=== PATIENT | female | born 1990 | race Caucasian/White ===

== ENCOUNTER 2016-12-02 18:52 | Inpatient (IN) | payer BC ==
[2016-12-02 20:44] LABS: Hematocrit 36 % (35-47); Hemoglobin 11.8 g/dl (12.0-16.0); Mean Corpuscular HGB Conc 33 g/dl (31-36); Mean Corpuscular Hemoglobin 26 pg (27-31); Mean Corpuscular Volume 79 fL (80-97); Mean Platelet Volume 11 um3 (7.4-10.4); Red Blood Count 4.56 10^6/ul (4.0-5.4); Red Cell Distribution Width 16 % (10.5-15); White Blood Count 14.2 10^3/ul (3.5-10.8)
[2016-12-02 20:58] LABS: BUN/Creatinine Ratio 16.7 (8-20); Calcium 8.6 mg/dL (8.6-10.3); EGFR African American 156.7 (>60); EGFR Non-African American 121.8 (>60); Uric Acid 4.5 mg/dL (2.3-6.6)
[2016-12-02] MEDS ORDERED: fentaNYL* 50 MCG/ML 2 ML VIAL (100 MCG VIAL) IV SLOW PU ONE (22:39)
[2016-12-03] MEDS ORDERED: oxyCODONE/Acetamin 5/325 MG* TAB PO PRN (01:11)
[2016-12-03] MEDS ORDERED: Acetaminophen TAB* 325 MG PO PRN (01:11)
[2016-12-03] MEDS ORDERED: Witch Hazel PAD* JAR TOPICAL PRN (01:11)
[2016-12-03] MEDS ORDERED: Dibucaine 1% 28.35 GM TUBE PR PRN (01:11)
[2016-12-03] MEDS: Ibuprofen TAB* 600 MG PO PRN ×4 (03:47→23:55)
[2016-12-03] MEDS: Docusate CAP* 100 MG PO SCH ×3 (09:57→20:56)
[2016-12-04 07:51] VITALS: BP 123/75
[2016-12-04 08:55] LABS: Hematocrit 34 % (35-47); Hemoglobin 11.1 g/dl (12.0-16.0); Mean Corpuscular HGB Conc 32 g/dl (31-36); Mean Corpuscular Hemoglobin 26 pg (27-31); Mean Corpuscular Volume 81 fL (80-97); Mean Platelet Volume 10 um3 (7.4-10.4); Red Blood Count 4.22 10^6/ul (4.0-5.4); Red Cell Distribution Width 16 % (10.5-15); White Blood Count 11.2 10^3/ul (3.5-10.8)
[2016-12-04] MEDS ORDERED: Ferrous Gluconate TAB* 324 MG TAB PO SCH (09:00)
[2016-12-04] MEDS: Docusate CAP* 100 MG PO SCH (09:29)
== END 2016-12-04 10:50 | disposition home or self-care (01) | DRG 560 ==
LOC: MCHOBOUT 18:52 → MCHOB 21:03
PROVIDERS: ADMIT Nurse Practitioner; ATTEND Nurse Practitioner
PROC: 10E0XZZ Delivery of Products of Conception, External Approach (ICD-10-PCS; principal; 2016-12-03)
PROC: 10907ZC Drainage of Amniotic Fluid, Therapeutic from Products of Conception, Via Natural or Artificial Opening (ICD-10-PCS; 2016-12-03)
DX: O80 Encounter for full-term uncomplicated delivery (principal); Z88.1 Allergy status to other antibiotic agents; Z3A.38 38 weeks gestation of pregnancy; Z37.0 Single live birth; Z91.013 Allergy to seafood
CPT/HCPCS: 36415; 76815; 80048; 81002; 84550; 85025; 86850; 86900; 86901; A9270-GY; J3010

== ENCOUNTER 2017-02-07 13:42 | Emergency (ER) | payer BC ==
[2017-02-07 15:25] VITALS: BP 132/76
--- NOTE | 2017-02-07 15:55 | UC ---
Eye Complaint HPI - HPI Summary HPI Summary: itchy red eyes with yellow drainage right worse than left for 2 days---also has some cough and nasal congestion - History of Current Complaint Chief Complaint: UCRespiratory Stated Complaint: EYE ITCHING,RED Time Seen by Provider: 02/07/17 15:53 Hx Obtained From: Patient Hx Last Menstrual Period: 10 months ago ?: No Onset/Duration: Sudden Onset, Lasting Days - 2, Still Present Timing: Constant Severity Initially: Mild Severity Currently: Moderate Pain Intensity: 4 Pain Scale Used: 0-10 Numeric Location of Injury: Conjunctiva Aggravating Factor(s): Nothing Alleviating Factor(s): Nothing Associated Signs And Symptoms: Positive: Drainage (Purulent). Negative: Vision Impairment Right, Vision Impairment Left - Allergies/Home Medications Allergies/Adverse Reactions: Allergies Allergy/AdvReac Type Severity Reaction Status Date / Time Amoxicillin Allergy Severe Anaphylatic Verified 02/07/17 15:25 Shock Azithromycin [From Zithromax] Allergy Severe Anaphylatic Verified 02/07/17 15:25 Shock Shellfish Allergy Allergy Severe Anaphylatic Verified 02/07/17 15:25 Shock Erythromycin Allergy Mild Vomiting Verified 02/07/17 15:25 Penicillin G Allergy Anaphylatic Verified 02/07/17 15:25 Shock PMH/Surg Hx/FS Hx/Imm Hx Previously Healthy: Yes - Is currently breast feeding - Surgical History Surgical History: None - Family History Known Family History: Positive: None Family History: no reported cardiovascular issues in family lineage - Social History Occupation: Employed Full-time Lives: With Family Alcohol Use: None Substance Use Type: None Smoking Status (MU): Never Smoked Tobacco Have You Smoked in the Last Year: No - Immunization History Most Recent Influenza Vaccination: unsure Most Recent Tetanus Shot: 11/14/13 Most Recent Pneumonia Vaccination: unsure Review of Systems Constitutional: Negative Skin: Negative Eyes: Drainage, Eye Redness ENT: Nasal Discharge Respiratory: Cough Cardiovascular: Negative Gastrointestinal: Negative Genitourinary: Negative Motor: Negative Neurovascular: Negative Musculoskeletal: Negative Neurological: Negative Psychological: Negative All Other Systems Reviewed And Are Negative: Yes Physical Exam Triage Information Reviewed: Yes Appearance: Well-Appearing, No Pain Distress, Well-Nourished Vital Signs: Initial Vital Signs Temp 97.6 F 02/07/17 15:21 Pulse 57 02/07/17 15:21 Resp 18 02/07/17 15:21 BP 132/76 06/19/17 15:21 Pulse Ox 99 02/07/17 15:21 Vital Signs Reviewed: Yes Eye Exam: Other Eyes: Positive: Conjunctiva Inflamed ENT Exam: Normal ENT: Positive: Normal ENT inspection, Hearing grossly normal, Pharynx normal, Nasal congestion, TMs normal. Negative: Nasal drainage, Tonsillar swelling, Tonsillar exudate, Trismus, Muffled/hoarse voice Dental Exam: Normal Neck exam: Normal Neck: Positive: Supple, Nontender, No Lymphadenopathy Respiratory Exam: Normal Respiratory: Positive: Chest non-tender, Lungs clear, Normal breath sounds, No respiratory distress, No accessory muscle use Cardiovascular Exam: Normal Cardiovascular: Positive: RRR, No Murmur, Pulses Normal, Brisk Capillary Refill Musculoskeletal Exam: Normal Musculoskeletal: Positive: Strength Intact, ROM Intact, No Edema Neurological Exam: Normal Neurological: Positive: Alert, Muscle Tone Normal Psychological Exam: Normal Skin Exam: Normal Eye Complaint Course/Dx - Course Course Of Treatment: polytrim, zaditor follow with pcp prn - Differential Dx/Diagnosis Differential Diagnosis/HQI/PQRI: Conjunctivitis Provider Diagnoses: Allergic Rhinnitis, Conjuctivitis Discharge - Discharge Plan Condition: Stable Disposition: HOME Prescriptions: Ketotifen Fumarate (Ophth) [Zaditor] 0.025 % OP BID PRN #1 btl PRN Reason: Allergic Conjuctivitis Polymyx/Trimethoprim OPTH* [Polytrim OPHTH*] 1 drop BOTH EYES Q4H #1 btl Patient Education Materials: Allergic Rhinitis (ED), Conjunctivitis (ED) Referrals: Kar Polanco MD [Primary Care Provider] - If Needed
== END 2017-02-07 16:00 | disposition home or self-care (01) ==
LOC: UCEAST 13:42
DX: J30.9 Allergic rhinitis, unspecified (principal); H10.9 Unspecified conjunctivitis
CPT/HCPCS: 99212; G0463

== ENCOUNTER 2017-05-19 19:42 | Emergency (ER) | payer BC ==
[2017-05-19 20:13] VITALS: BP 148/87
--- NOTE | 2017-05-19 20:15 | UC ---
Respiratory Complaint HPI - HPI Summary HPI Summary: 27 YEAR OLD FEMALE WITH JOINT PAIN AND NUMBNESS ON HER FINGERS AND TOES. - History of Current Complaint Chief Complaint: UCGeneralIllness Stated Complaint: BODY ACHES, HEADACHE Time Seen by Provider: 05/19/17 20:14 Hx Obtained From: Patient Hx Last Menstrual Period: 1 WEEK AGO Onset/Duration: Sudden Onset Severity Initially: Moderate Severity Currently: Moderate Pain Scale Used: 0-10 Numeric - 4 - Allergies/Home Medications Allergies/Adverse Reactions: Allergies Allergy/AdvReac Type Severity Reaction Status Date / Time Amoxicillin Allergy Severe Anaphylatic Verified 05/19/17 20:14 Shock Azithromycin [From Zithromax] Allergy Severe Anaphylatic Verified 05/19/17 20:14 Shock Shellfish Allergy Allergy Severe Anaphylatic Verified 05/19/17 20:14 Shock Erythromycin Allergy Mild Vomiting Verified 05/19/17 20:14 Penicillin G Allergy Anaphylatic Verified 05/19/17 20:14 Shock Home Medications: Home Medications DOXYcycline CAP(*) [DOXYcycline 100MG CAP(*)] 100 mg PO BID 05/19/17 [History Confirmed 05/19/17] Ibuprofen TAB* [Advil TAB*] 600 mg PO PRN 05/19/17 [History] PMH/Surg Hx/FS Hx/Imm Hx Previously Healthy: Yes - Surgical History Surgical History: Yes Surgery Procedure, Year, and Place: WISDOM TEETH - Family History Known Family History: Positive: None Family History: no reported cardiovascular issues in family lineage - Social History Alcohol Use: Occasionally Substance Use Type: None Smoking Status (MU): Never Smoked Tobacco Have You Smoked in the Last Year: No - Immunization History Most Recent Influenza Vaccination: unsure Most Recent Tetanus Shot: 11/14/13 Most Recent Pneumonia Vaccination: unsure Review of Systems Constitutional: Negative Skin: Negative Eyes: Negative ENT: Negative Respiratory: Negative Cardiovascular: Negative Gastrointestinal: Negative Genitourinary: Negative Motor: Negative Neurovascular: Negative Musculoskeletal: Myalgia Neurological: Paresthesia, Numbness Psychological: Negative All Other Systems Reviewed And Are Negative: Yes Physical Exam Triage Information Reviewed: Yes Vital Signs: Initial Vital Signs Temp 36.5 C 05/19/17 20:09 Pulse 63 05/19/17 20:09 Resp 16 05/19/17 20:09 BP 148/87 05/19/17 20:09 Pulse Ox 100 05/19/17 20:09 Vital Signs Reviewed: Yes Eye Exam: Normal ENT Exam: Normal Dental Exam: Normal Neck exam: Normal Neck: Positive: 1 Respiratory Exam: Normal Cardiovascular Exam: Normal Abdominal Exam: Normal Musculoskeletal Exam: Normal Neurological Exam: Normal Psychological Exam: Normal Skin Exam: Normal UC Diagnostic Evaluation - Laboratory O2 Sat by Pulse Oximetry: 100 Respiratory Course/Dx - Differential Dx/Diagnosis Provider Diagnoses: MYALGIA. NUMBNESS. FATIGUE. PARESTHESIA Discharge - Discharge Plan Condition: Stable Disposition: HOME Patient Education Materials: Paresthesia (ED) Referrals: Kar Polanco MD [Medical Doctor] -
[2017-05-20 10:35] LABS: Hematocrit 40 % (35-47); Hemoglobin 12.8 g/dl (12.0-16.0); Mean Corpuscular HGB Conc 32 g/dl (31-36); Mean Corpuscular Hemoglobin 26 pg (27-31); Mean Corpuscular Volume 80 fL (80-97); Mean Platelet Volume 10 um3 (7.4-10.4); Red Blood Count 4.96 10^6/ul (4.0-5.4); Red Cell Distribution Width 16 % (10.5-15); White Blood Count 12.3 10^3/ul (3.5-10.8)
[2017-05-20 10:48] LABS: Albumin 3.8 g/dL (3.2-5.2); BUN/Creatinine Ratio 21.1 (8-20); Calcium 8.9 mg/dL (8.6-10.3); EGFR Non-African American 99.5 (>60); Globulin 2.8 g/dL (2-4); Potassium 4.6 mmol/L (3.5-5.0); Total Bilirubin 0.3 mg/dL (0.2-1.0); Total Protein 6.6 g/dL (6.4-8.9)
--- NOTE | 2017-05-20 23:00 | UC ---
Progress - Progress Note Progress Note: please call pt and inform of lab mildly abn - elevated wbc, bun/creatinine and alk phos. follow up with pcp.
--- NOTE | 2017-05-22 18:13 | UC ---
Progress - Progress Note Progress Note: please call pt and inform of lab mildly abn - elevated wbc, bun/creatinine and alk phos. follow up with pcp. 05/22/17 PLEASE CALL PATIENT. (+) LYME. DOXYCYCLINE CALLED IN.
[2017-05-23 14:43] LABS: Lyme Disease IgG Ab WB Negative (Negative)
== END 2017-05-19 21:07 | disposition home or self-care (01) ==
LOC: UCEAST 19:42
DX: M79.1 Myalgia (principal); R20.0 Anesthesia of skin; R53.83 Other fatigue; Z88.3 Allergy status to other anti-infective agents; Z88.0 Allergy status to penicillin; Z91.013 Allergy to seafood
CPT/HCPCS: 36415; 80053; 85025; 86617; 86618; 87502; 99211; G0463

== ENCOUNTER 2017-05-20 14:38 | Emergency (ER) | payer BC ==
[2017-05-20 15:40] LABS: Urine Bilirubin Negative (Negative); Urine Glucose Negative (Negative); Urine Nitrite Negative (Negative)
[2017-05-20 16:42] LABS: Hematocrit 40 % (35-47); Mean Corpuscular HGB Conc 33 g/dl (31-36); Mean Corpuscular Hemoglobin 26 pg (27-31); Mean Corpuscular Volume 80 fL (80-97); Mean Platelet Volume 9 um3 (7.4-10.4); Red Blood Count 5.04 10^6/ul (4.0-5.4); Red Cell Distribution Width 16 % (10.5-15); White Blood Count 10.5 10^3/ul (3.5-10.8)
[2017-05-20 17:01] LABS: ALT 21 U/L (7-52); AST 15 U/L (13-39); Albumin 3.8 g/dL (3.2-5.2); Alkaline Phosphatase 144 U/L (34-104); Anion Gap 6 mmol/L (2-11); BUN/Creatinine Ratio 14.9 (8-20); Blood Urea Nitrogen 10 mg/dL (6-24); C Reactive Protein 7.76 mg/L (< 5.00); CO2 Carbon Dioxide 27 mmol/L (22-32); Calcium 8.9 mg/dL (8.6-10.3); Chloride 105 mmol/L (101-111); Creatine Kinase 26 U/L (10-223); EGFR African American 136.8 (>60); EGFR Non-African American 106.4 (>60); Globulin 3.2 g/dL (2-4); Glucose 86 mg/dL (70-100); Magnesium 1.8 mg/dL (1.9-2.7); Potassium 3.8 mmol/L (3.5-5.0); Sodium 138 mmol/L (133-145)
[2017-05-20 17:15] LABS: TSH (Thyroid Stimulating Horm) 0.31 mcIU/mL (0.34-5.60)
[2017-05-20 17:42] VITALS: BP 125/84
--- NOTE | 2017-05-20 18:22 | ED ---
Kunal Larkin Alfonso, scribed for Jairo Tang MD on 05/20/17 at 1522 . Complex/Multi-Sys Presentation - HPI Summary HPI Summary: Patient is a 27 y.o. F presenting to [facility] accompanied by with a chief complaint of constant diffuse myalgia since two weeks ago. Four weeks ago, patient removed a tick from herself. Patient completed a doxycycline (200mg/day for 10 days) course of treatment today. She rates her pain 6/10 in severity. Patient reports jaw stiffness (resolved), tingling, weakness, and numbness bilaterally in UE, and headache. She denies rash. Patient reports that her vaccinations are UTD. She is currently on no other medications. - History Of Current Complaint Chief Complaint: EDGeneral Time Seen by Provider: 05/20/17 15:00 Hx Obtained From: Patient Onset/Duration: Gradual Onset - Over the course of 2 weeks, Still Present Timing: Constant Severity Initially: Moderate - 6/10 in severity Location: Pain At: - "all over body" Associated Signs And Symptoms: Positive: Other - patient reports tingling, weakness, and numbness bilaterally in UE, general muscle pain, and headache; negative rash - Allergies/Home Medications Allergies/Adverse Reactions: Allergies Allergy/AdvReac Type Severity Reaction Status Date / Time Amoxicillin Allergy Severe Anaphylatic Verified 05/19/17 20:14 Shock Azithromycin [From Zithromax] Allergy Severe Anaphylatic Verified 05/19/17 20:14 Shock Shellfish Allergy Allergy Severe Anaphylatic Verified 05/19/17 20:14 Shock Erythromycin Allergy Mild Vomiting Verified 05/19/17 20:14 Penicillin G Allergy Anaphylatic Verified 05/19/17 20:14 Shock PMH/Surg Hx/FS Hx/Imm Hx History: Reports: Other Problems/Disorders - IBS Sensory History: Denies: Hx Legally Blind, Hx Deafness - Surgical History Surgery Procedure, Year, and Place: WISDOM TEETH Infectious Disease History: No Infectious Disease History: Denies: Traveled Outside the [place] in Last 30 Days - Family History Known Family History: Positive: Other - R&NC Family History: no reported cardiovascular issues in family lineage - Social History Alcohol Use: Occasionally Substance Use Type: Reports: None Smoking Status (MU): Never Smoked Tobacco Have You Smoked in the Last Year: No Review of Systems Negative: Fever Positive: Myalgia, Other - jaw stiffness Negative: Rash Neurological: Other - tingling, weakness, and numbness bilaterally in UE Positive: Headache All Other Systems Reviewed And Are Negative: Yes Physical Exam Triage Information Reviewed: Yes Vital Signs On Initial Exam: Initial Vitals Temp Pulse Resp BP Pulse Ox 98.4 F 61 18 140/97 97 05/20/17 14:39 05/20/17 14:39 05/20/17 14:39 05/20/17 14:39 05/20/17 14:39 Vital Signs Reviewed: Yes Appearance: Positive: Well-Appearing, No Pain Distress Skin: Positive: Skin Color Reflects Adequate Perfusion Head/Face: Positive: Normal Head/Face Inspection Eyes: Positive: EOMI ENT: Positive: Normal ENT inspection Neck: Positive: Nontender Respiratory/Lung Sounds: Positive: Clear to Auscultation, Breath Sounds Present Cardiovascular: Positive: Normal, RRR. Negative: Murmur Abdomen Description: Positive: Nontender Musculoskeletal: Positive: Strength/ROM Intact. Negative: Edema Left, Edema Right Neurological: Positive: Sensory/Motor Intact, Alert, Oriented to Person Place, Time, CN Intact II-III Psychiatric: Positive: Normal - [place] Coma Scale Best Eye Response: 4 - Spontaneous Best Motor Response: 6 - Obeys Commands Best Verbal Response: 5 - Oriented Diagnostics - Vital Signs Vital Signs Temp Pulse Resp BP Pulse Ox 05/20/17 14:39 98.4 F 61 18 140/97 97 - Laboratory Lab Results: Lab Results 05/20/17 Range/Units 15:25 Urine Color Colorless Urine Appearance Clear Urine pH 6.0 (5-9) Ur Specific [place] 1.003 L (1.010-1.030) Urine Protein Negative (Negative) Urine Ketones Negative (Negative) Urine Blood Negative (Negative) Urine Nitrate Negative (Negative) Urine Bilirubin Negative (Negative) Urine Urobilinogen Negative (Negative) Ur Leukocyte Esterase Negative (Negative) Urine Glucose Negative (Negative) Result Diagrams: 05/20/17 15:46 05/20/17 15:46 Lab Statement: Any lab studies that have been ordered have been reviewed, and results considered in the medical decision making process. Complex Multi-Symp Course/Dx Course Of Treatment: 27 yr old female with a history of tick bite over a month ago. She has been on doxy for a week at this point. No Lyme test result yet. I am sending another week of doxy for her. I have asked her to see her primary doctor for follow up. Her CK enzymes are not elevated. LIDIA is pending. I have called her PCP and am discussing the case with Dr Rosen, PCP division human resources manager for the patient, who was contacted at [phone], and she is aware of the case, the labs , the pending lyme serology and LIDIA. They will follow up with the patient and be sure her work up is continued and she is followed up closely. - Diagnoses Provider Diagnoses: Myalgia Discharge - Discharge Plan Condition: Good Disposition: HOME Prescriptions: Doxycycline (Monohydrate) [Doxycycline Monohydrate] 100 mg PO BID #14 cap Patient Education Materials: Lyme Disease (ED), Musculoskeletal Pain (ED) Referrals: Janice Denise NP [Primary Care Provider] - 2 Days The documentation as recorded by the Kunal auguste Alfonso accurately reflects the service I personally performed and the decisions made by me, Jairo Tang MD.
== END 2017-05-20 17:42 | disposition home or self-care (01) ==
LOC: ED 14:38
DX: R51 Headache (principal); M79.1 Myalgia
CPT/HCPCS: 36415; 80053; 81003; 82550; 83605; 83735; 84443; 84702; 85025; 85379; 86038; 86140; 99282

== ENCOUNTER 2019-06-19 22:13 | Emergency (ER) | payer BC ==
[2019-06-19] MEDS ORDERED: Ibuprofen TAB* 400 MG PO ONE (22:50)
[2019-06-19 23:10] LABS: ABS Basophils 0.1 10^3/ul (0-0.2); ABS Eosinophils 0.1 10^3/ul (0-0.6); ABS Lymphocytes 1.7 10^3/ul (1.0-4.8); ABS Monocytes 0.5 10^3/ul (0-0.8); ABS Neutrophils 8.6 10^3/ul (1.5-7.7); Eosinophil % 0.8 %; Hematocrit 41 % (35-47); Hemoglobin 13.5 g/dL (12.0-16.0); Lymphocyte % 15.3 %; Mean Corpuscular HGB Conc 33 g/dL (31-36); Mean Corpuscular Hemoglobin 27 pg (27-31); Mean Corpuscular Volume 83 fL (80-97); Mean Platelet Volume 9.3 fL (7.4-10.4); Platelet Count 229 10^3/uL (150-450); Red Blood Count 4.93 10^6 /uL (3.70-4.87); Red Cell Distribution Width 14 % (10-15)
--- OUTSIDE RECORDS SUMMARY | 2019-06-19 23:14 | XMS REPORT | Continuity of Care Document ---
:1990 External Reference #:[id number] Author Name MAYURI Doyle Address [address] [place] [address] Care Team Providers Name Role Phone Cade Damico MD - Family Medicine Care Team Information Onyx Chip Terrazzo Worker [phone] Abigail Sinha MD - Dermatology Care Team Information Onyx Chip Terrazzo Worker Kenneth Patnio MD - Hematology Care Team Information Onyx Chip Terrazzo Worker [phone] Problems Description No Information Available Social History Type Date Description Comments Sex Unknown Tobacco Use Start: Unknown Never Smoked Cigarettes ETOH Use Rare Tobacco Use Start: Unknown Patient has never smoked Smoking Status Reviewed: 05/25/17 Patient has never smoked Allergies, Adverse Reactions, Alerts Active Allergies Reaction Severity Comments Date Penicillin 08/30/2012 Azithromycin 08/30/2012 Amoxicillin 08/30/2012 Shellfish-derived Products anaphalaxis 03/27/2013 Spironolactone 11/01/2018 Medications Active Medications SIG Qnty Indications Ordering Provider Date Epipen 2-Apolinar use as directed 1units V15.04 Janice 08/30/2012 MAYURI Denise 0.3mg/0.3ML Device Isotretinoin 3 in the Am and 2 Unknown 20mg at night Capsules History Medications Doxycycline Hyclate take one by 14caps J01.90 Ellen Escamilla, 2018 - mouth twice 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 02/02/2019 100mg Capsules daily until gone Immunizations CPT Code Status Date Vaccine Lot # [id number] Given 05/09/2019 Influenza Vac, Quadrivalent, Slit Virus, Im [id number] Vital Signs Date Vital Result Comment 05/09/2019 1:14pm BP Systolic 128 mmHg BP Diastolic 90 mmHg Heart Rate 64 /min Body Temperature 97.7 F Weight 206.38 lb 03/12/2019 11:06am BP Systolic 130 mmHg BP Diastolic 84 mmHg Heart Rate 64 /min Body Temperature 98.2 F Respiratory Rate 16 /min Weight 212.00 lb Results Test Date Facility Test Result H/L Range Note Laboratory test [facility] Medicine HIV 1&2 <pending> Negative finding 9 (607)- - Antibody Screen (Fma) Laboratory test [facility] Rapid Plasma <pending> finding [address] [place] ([place]) [place] [address] Qual Test (607)- - [place] [facility] [place] p210 see interpretati 1 PCR 9 Result <SEE NOTE> BCR/Abl PCR Specimen Blood BCR/Abl p210 Final Diagnosis See Comment 2 Laboratory test [place]26/2019 [facility] [place] < 0.60 mIU/mL 3 finding Comprehensive 02/26/2019 Daniel Mehnaz(fma) Sodium 135 mEq/L 134-149 Metabolic Prof Potassium 4.6 mEq/L 3.6-5.5 Chloride 99 mEq/L 94-112 Carbon Dioxide 25 mEq/L 21-32 Glucose 94 mg/dL 70-105 BUN 8 mg/dL 6-26 Creatinine 0.8 mg/dL 0.6-1.4 BUN/Creat Ratio 10.0 CALC 8.0-36.0 Calcium 9.2 mg/dL 8.6-10.2 Total Protein 7.5 g/dL 6.4-8.3 Albumin 4.7 g/dL 3.8-5.5 Globulin 2.8 g/dL 2.0-4.8 A/G Ratio 1.7 CALC 0.6-2.3 Alk. Phosphatase 151 U/L High 30-110 4 Alt (SGPT) 16 U/L 7-35 Ast (Sgot) 20 U/L 5-34 Total Bilirubin 0.4 mg/dL 0.2-1.3 GFR Non- >60 ml/min/1.73m^ >=60 GFR >60 ml/min/1.73m^ >=60 Lipid Profile 02/26/2019 Daniel Mehnaz(fma) Cholesterol 187 mg/dL 120- 200 Triglycerides 173 mg/dL 30-200 HDL Cholesterol 39 mg/dL 30-85 LDL (Calculated) 113 CALC 0-129 VLDL Cholesterol 35 mg/dL 0-50 HDL Risk Factor 4.8 CALC High 0.0-4.4 CBC Electronic a 02/26/2019 Daniel Mehnaz([facility]) WBC 13.5 x10^3/UL High 4.0-10.0 5 RBC 5.54 x10^6/UL 3.93-6.00 HGB 14.8 g/dL 12.0-17.0 HCT 46 % 35-50 MCV 83.6 fL 80.0-95.0 MCH 26.7 pg 25.6-32.2 MCHC 32.0 g/dL Low 32.2-36.0 RDW-CV 14.0 % 11.6-14.4 PLT 288 x10^3/UL 163-400 MPV 12.0 fL 9.4-12.4 [place]# 10.98 x10^3/UL High 1.56-6.13 Lymph# 1.83 x10^3/UL 1.18-3.74 [place]ardo# 0.59 x10^3/UL 0.24-0.82 Eos # 0.0 x10^3/UL 0.0-0.5 Baso # 0.06 x10^3/UL 0.01-0.08 [place]% 81.2 % High 34.0-70.0 Lymph % 13.5 % Low 20.0-52.0 [place]ardo% 4.4 % Low 5.0-12.0 Eos% 0.3 % Low 0.7-7.0 Baso% 0.4 % 0.1-1.2 CBC Electronic Fma 01/29/2019 Daniel Mehnaz([facility]) WBC 13.2 x10^3/UL High 4.0-10.0 6 RBC 5.10 x10^6/UL 3.93-6.00 HGB 13.7 g/dL 12.0-17.0 HCT 43 % 35-50 MCV 83.7 fL 80.0-95.0 MCH 26.9 pg 25.6-32.2 MCHC 32.1 g/dL Low 32.2-36.0 7 RDW-CV 13.0 % 11.6-14.4 PLT 272 x10^3/UL 163-400 MPV 10.8 fL 9.4-12.4 [place]# 10.13 x10^3/UL High 1.56-6.13 Lymph# 2.18 x10^3/UL 1.18-3.74 [place]ardo# 0.69 x10^3/UL 0.24-0.82 Eos # 0.1 x10^3/UL 0.0-0.5 Baso # 0.07 x10^3/UL 0.01-0.08 [place]% 77.0 % High 34.0-70.0 Lymph % 16.5 % Low 20.0-52.0 [place]ardo% 5.2 % 5.0-12.0 Eos% 0.6 % Low 0.7-7.0 Baso% 0.5 % 0.1-1.2 Laboratory test 12/25/2018 [facility] hCG,Beta <1 mIU/mL 8, 9 finding [address] [facility] [place] [address] Serum (607)- - Laboratory test 12/04/2018 [facility] HCG < 0.60 10 finding mIU/mL Comprehensive 12/04/2018 Daniel Mehnaz(fma) Sodium 142 mEq/L 134-1 Metabolic Prof 49 Potassium 3.9 mEq/L 3.6-5.5 Chloride 103 mEq/L 94-112 Carbon Dioxide 22 mEq/L 21-32 Glucose 96 mg/dL 70-105 BUN 6 mg/dL 6-26 Creatinine 0.7 mg/dL 0.6-1.4 BUN/Creat Ratio 8.6 CALC 8.0-36.0 Calcium 8.9 mg/dL 8.6-10.2 Total Protein 7.2 g/dL 6.4-8.3 Albumin 4.4 g/dL 3.8-5.5 Globulin 2.8 g/dL 2.0-4.8 A/G Ratio 1.6 CALC 0.6-2.3 Alk. Phosphatase 118 U/L High 30-110 11 Alt (SGPT) 18 U/L 7-35 Ast (Sgot) 15 U/L 5-34 Total Bilirubin 0.4 mg/dL 0.2-1.3 GFR Non- >60 ml/min/1.73m^ >=60 GFR >60 ml/min/1.73m^ >=60 Lipid Profile 12/04/2018 Daniel Mehnaz(fma) Cholesterol 176 mg/dL 120- 200 Triglycerides 100 mg/dL 30-200 HDL Cholesterol 43 mg/dL 30-85 LDL (Calculated) 113 CALC 0-129 VLDL Cholesterol 20 mg/dL 0-50 HDL Risk Factor 4.1 CALC 0.0-4.4 CBC Electronic a 12/04/2018 Daniel Darby([facility]) WBC 9.2 x10^3/UL 4.0- 10.0 RBC 5.13 x10^6/UL 3.93-6.00 HGB 13.9 g/dL 12.0-17.0 HCT 44 % 35-50 MCV 85.4 fL 80.0-95.0 MCH 27.1 pg 25.6-32.2 MCHC 31.7 g/dL Low 32.2-36.0 12 RDW-CV 13.2 % 11.6-14.4 PLT 288 x10^3/UL 163-400 MPV 10.8 fL 9.4-12.4 [place]# 7.19 x10^3/UL High 1.56-6.13 Lymph# 1.34 x10^3/UL 1.18-3.74 [place]# 0.47 x10^3/UL 0.24-0.82 Eos # 0.1 x10^3/UL 0.0-0.5 Baso # 0.03 x10^3/UL 0.01-0.08 [place]% 78.2 % High 34.0-70.0 Lymph % 14.6 % Low 20.0-52.0 [place]% 5.1 % 5.0-12.0 Eos% 1.0 % 0.7-7.0 Baso% 0.3 % 0.1-1.2 Laboratory test 12/04/2018 Daniel Darby([facility]) LDL, Direct 107 mg/dL 0- 130 finding 1 see interpretation PDF Report available at: [email or web address] Peripheral blood, BCR/ABL1 mRNA level analysis (p210 fusion form): Negative. No BCR/ABL1 p210 mRNA transcripts were detected (%BCR/ABL1(p210):ABL1=0). NOTE: Please correlate this result with the original (diagnostic) BCR-ABL1 mRNA transcript type identified in this patient to ensure that the ordered test is correct and appropriate for the clinical indication. This assay specifically detects the p210 (e13a2 or e14a2) BCR-ABL1 transcript isoform. It does not detect the BCR-ABL1 p190 (e1-a2) transcript (prevalent in B-lymphoblastic leukemia, but may also rarely occur in chronic myeloid leukemia) or other rare BCR-ABL1 transcript isoforms. Signing Pathologist: Chin Gross M.D. ADDITIONAL INFORMATION Method summary - BCR/ABL1, p210 fusion: The BCR/ABL1 transcript level was evaluated using a quantitative, reverse bacon slicer PCR. The analytical sensitivity of this assay has been determined at 0.003% (MR 4.5). This assay detects the major breakpoint region-associated common fusion mRNA forms in chronic myelogenous leukemia (e13/a2 and e14/a2), which code for a p210 protein. It is intended for monitoring patients with hematopoietic neoplasms known to carry the p210 fusion form. The assay does not detect other BCR/ABL1 mRNA types, including the e1/a2 transcript (p190 protein) that is commonly present in acute lymphoblastic leukemia. This assay is not intended for use in the diagnostic setting, as it does not detect all BCR/ABL1 mRNA fusion forms. If this has been performed in a diagnostic setting and the result is negative, test: BADX (BCR/ABL mRNA Detection, RT-PCR, Qualitative, Diagnostic) should be ordered to evaluate for all possible fusion forms. Please contact the [facility] at [phone] with questions or if additional testing is required. See the [facility] Interpretive Handbook for method details. The reproducibility of this assay is such that results within 0.5 log should be considered equivalent. Trends in the level of BCR/ABL1 mRNA should be followed carefully and clinically significant changes in BCR/ABL1 mRNA levels during tyrosine kinase inhibitor (TKI) therapy may indicate the presence of acquired BCR/ABL1 kinase domain mutations, which can be further evaluated using the BCR/ABL KDM assay (test: BAKDM). This test was developed and its performance characteristics determined by [facility] in a manner consistent with CLIA requirements. This test has not been cleared or approved by the U.S. Food and Drug Administration. Test Performed by: [address] [place] [address] Printer Assistant: Parker Miller M.D. Ph.D.; CLIA# [id number] 3 <5.0 Negative 5.0 - 25.0 Indeterminate (Repeat testing recommended after 72 hours) >25.0 Positive Perimenopausal women can display HCG levels of up to 20 mIU/mL 4 consistent w/ previous results 5 RESULTS VERIFIED BY REPEAT ANALYSIS 6 RESULTS VERIFIED BY REPEAT ANALYSIS 7 RESULTS VERIFIED BY REPEAT ANALYSIS 8 1 SST 9 Female (Non-) 0 - 5 (Postmenopausal) 0 - 8 Female () Weeks of Gestation 3 6 - 71 4 10 - 750 5 508 - 3137 6 905 - 55335 7 [phone] 8 16069 -[phone] 9 [phone] 10 35705 -[phone] 12 55418 -630692 14 05884 - 90546 15 51743 - 64041 16 8198 - 09008 17 2642 - 66104 18 0378 - 17628 Bridgette ECLIA methodology 10 <5.0 Negative 5.0 - 25.0 Indeterminate (Repeat testing recommended after 72 hours) >25.0 Positive Perimenopausal women can display HCG levels of up to 20 mIU/mL 11 RESULTS VERIFIED BY REPEAT ANALYSIS 12 consistent w/ previous results Procedures Description No Information Available Medical Devices Description No Information Available Encounters Type Date Location Provider Dx Diagnosis Office Visit 03/12/2019 [facility] Office Cade Damico, D72.829 Elevated white 11:20a M.D. blood cell count, unspecified Office Visit 02/02/2019 Main Office Janice R59.0 Localized enlarged 11:15a Camelia [facility] lymph nodes D72.829 Elevated white blood cell count, unspecified Z79.899 Other intermediate teacher (current) drug therapy Office Visit 11/08/2018 2:30p [facility] Office Ellen Travis01.90 Acute sinusitis, NADINE Escamilla unspecified Assessments Date Code Description Provider 05/09/2019 B07.8 Other viral warts KRANTHI DoyleP 05/09/2019 M25.522 Pain in left elbow KRANHTI DoyleP 05/09/2019 M25.512 Pain in left shoulder Janice Denise [facility] 05/09/2019 M25.511 Pain in right shoulder Janicerere Denise, [facility] 05/09/2019 M25.521 Pain in right elbow Janice Denise, [facility] 05/09/2019 M54.5 Low back pain Janice Denise, [facility] 05/09/2019 Z79.899 Other intermediate teacher (current) drug therapy Janice Denise , [facility] 03/12/2019 D72.829 Elevated white blood cell count, Cade Damico M.D. unspecified 02/26/2019 Z79.899 Other assisted (current) drug therapy Cade Damico M.D. 02/26/2019 L70.0 Acne vulgaris Cade Damico M.D. 02/02/2019 R59.0 Localized enlarged lymph nodes Janice Denise, [facility] 02/02/2019 D72.829 Elevated white blood cell count, Janice Denise, [facility] unspecified 02/02/2019 Z79.899 Other assisted (current) drug therapy Janice Denise , [facility] 01/29/2019 L70.0 Acne vulgaris Cade Damico M.D. 12/25/2018 L70.0 Acne vulgaris Cade Damico M.D. 12/04/2018 L70.0 Acne vulgaris Cade Damico M.D. 12/04/2018 Z79.899 Other assisted (current) drug therapy Cade Damico M.D. 11/08/2018 J01.90 Acute sinusitis, unspecified Ellen Escamilla NP Plan of Treatment No Information Available Functional Status Description No Information Available Mental Status Description No Information Available Referrals Refer to Reason for Referral Status Appt Kenneth Mireles MD elevated white blood count Scheduled 04/19/2019 [address] [facility] [address] [place] [address] [phone] Luis Miguel Bray MD cervicalgia jw [address] [place] [address] [phone]
[2019-06-19 23:21] LABS: INR 1.15 (0.82-1.09)
[2019-06-19] MEDS ORDERED: Ketorolac INJ* 30 MG/ML 1 ML VIAL IM ONE (23:31)
[2019-06-19 23:34] LABS: ALT 14 U/L (7-52); AST 13 U/L (13-39); Albumin 3.9 g/dL (3.2-5.2); Albumin/Globulin Ratio 1.3 (1-3); Alkaline Phosphatase 180 U/L (34-104); Anion Gap 5 mmol/L (2-11); BUN/Creatinine Ratio 10.9 (8-20); Blood Urea Nitrogen 10 mg/dL (6-24); C Reactive Protein 10.75 mg/L (<8.01); CO2 Carbon Dioxide 27 mmol/L (22-32); Calcium 8.8 mg/dL (8.6-10.3); Chloride 106 mmol/L (101-111); EGFR Non-African American 72.7 (>60); Globulin 2.9 g/dL (2-4); Glucose 105 mg/dL (70-100); Sodium 138 mmol/L (135-145); Total Protein 6.8 g/dL (6.4-8.9)
--- NOTE | 2019-06-19 23:34 | ED ---
Complex/Multi-Sys Presentation - HPI Summary HPI Summary: This pt is 29 Y/O F presenting to [facility] with a CC of muscle pain and weakness with a persistent headache and blurry vision that has been present for about 1- 2 months that are rated a 7/10 in severity. She states that this was a negative side effect of Claravis 5mgs. She has been on Claravis for the last 4 months. She states that her low back and bilateral upper extremities have been aching. She denies any fevers, SOB, CP, diaphoresis, sore throats, N/V, joint swelling, joint redness, and abdominal pains. She states that her WBC has been elevated for the last couple months. She states that her pain is aggravated when she moves around. She states that her muscle aches get better when she takes OTC medications. She denies any pertinent Hx. - History Of Current Complaint Chief Complaint: EDGeneral Time Seen by Provider: 06/19/19 23:06 Hx Obtained From: Patient Onset/Duration: Gradual Onset - states last couple of months, Still Present Timing: Constant Severity Currently: Moderate - 7/10 Severity Initially: Mild Location: Pain At: - States myalgia, pain is mainly located at her lower back and bilateral upper extremities Character: Migraine Aggravating Factor(s): movement Alleviating Factor(s): otc medications Associated Signs And Symptoms: Positive: Headache, Back Pain - low back, Other - NEGATIVE: sore throats, joint swelling, joint redness POSITIVE: soft spot on head, visual disturbances. Negative: SOB, Chest Pain, Nausea, Vomiting, Abdominal Pain, Fever, Diaphoresis - Allergies/Home Medications Allergies/Adverse Reactions: Allergies Allergy/AdvReac Type Severity Reaction Status Date / Time amoxicillin Allergy Anaphylatic Verified 06/19/19 22:15 Shock azithromycin Allergy Anaphylatic Verified 06/19/19 22:15 Shock erythromycin base Allergy Vomiting Verified 06/19/19 22:15 Penicillins Allergy Anaphylatic Verified 06/19/19 22:15 Shock shellfish derived Allergy Anaphylatic Verified 06/19/19 22:15 Shock Home Medications: Home Medications Cyclobenzaprine TAB* [Flexeril 10 MG TAB*] 5 mg PO DAILY PRN 06/19/19 [History Confirmed 06/19/19] Isotretinoin [Claravis] 30 mg PO DAILY 06/19/19 [History Confirmed 06/19/19] PMH/Surg Hx/FS Hx/Imm Hx Previously Healthy: Yes History: Reports: Other Problems/Disorders - IBS Sensory History: Denies: Hx Legally Blind, Hx Deafness Opthamlomology History: Denies: Hx Legally Blind - Surgical History Surgical History: Yes Surgery Procedure, Year, and Place: WISDOM TEETH - Immunization History Immunizations Up to Date: Yes Infectious Disease History: No Infectious Disease History: Denies: Traveled Outside the [place] in Last 30 Days - Family History Known Family History: Positive: Other - R&NC Family History: no reported cardiovascular issues in family lineage - Social History Occupation: Student Lives: With Family Alcohol Use: None Hx Substance Use: No Substance Use Type: Reports: None Hx Tobacco Use: No Smoking Status (MU): Never Smoked Tobacco Have You Smoked in the Last Year: No Review of Systems Negative: Fever, Skin Diaphoresis Positive: Blurred Vision Negative: Sore Throat Negative: Chest Pain Negative: Shortness Of Breath Negative: Abdominal Pain, Vomiting, Nausea Musculoskeletal: Negative - joint redness, joint swelling , Other - POSITIVE: soft spot on head Positive: Myalgia - worse at low back, bilateral forearms Positive: Headache All Other Systems Reviewed And Are Negative: Yes Physical Exam - Summary Physical Exam Summary: General: Well-developed, obese female. No acute distress. HEENT: Normocephalic, Atraumatic. Eyes: Conjuctiva normal, PERRL. Ears: TMs within normal limits. Nares: (-) discharge, (-) erythema. Oropharynx: Clear, mucous membranes moist, (-) exudates. Neck: Soft, FROM, (-) lymphadenopathy, (-) thyromegaly, (-) JVD. Cardiovascular: Normal sinus rhythm, (-) murmur. Lungs: Clear to auscultation bilaterally (-) wheezes, (-) rales, (-) rhonchi. Abdomen: Soft, non-tender, non-distended, (-) organomegaly, normal bowel sounds. Back: (-) CVA tenderness Extremities: No edema. Skin: Warm, dry, (-) rash. Neuro: Alert and oriented x3, no focal deficits. Psychiatric: Mood normal, affect normal. Triage Information Reviewed: Yes Vital Signs On Initial Exam: Initial Vitals Temp Pulse Resp BP Pulse Ox 97 F 71 16 169/108 98 06/19/19 22:16 06/19/19 22:16 06/19/19 22:16 06/19/19 22:16 06/19/19 22:16 Vital Signs Reviewed: Yes Procedures - Sedation Patient Received Moderate/Deep Sedation with Procedure: No Diagnostics - Vital Signs Vital Signs Temp Pulse Resp BP Pulse Ox 06/19/19 22:16 97 F 71 16 169/108 98 - Laboratory Lab Results: Lab Results 06/19/19 06/19/19 Range/Units 23:04 23:04 WBC 11.0 H (3.5-10.8) 10^3/uL RBC 4.93 H (3.70-4.87) 10^6 /uL Hgb 13.5 (12.0-16.0) g/dL Hct 41 (35-47) % MCV 83 (80-97) fL MCH 27 (27-31) pg MCHC 33 (31-36) g/dL RDW 14 (10-15) % Plt Count 229 (150-450) 10^3/uL MPV 9.3 (7.4-10.4) fL Neut % (Auto) 78.5 % Lymph % (Auto) 15.3 % [place] % (Auto) 4.8 % Eos % (Auto) 0.8 % Baso % (Auto) 0.6 % Absolute Neuts (auto) 8.6 H (1.5-7.7) 10^3/ul Absolute Lymphs (auto) 1.7 (1.0-4.8) 10^3/ul Absolute Monos (auto) 0.5 (0-0.8) 10^3/ul Absolute Eos (auto) 0.1 (0-0.6) 10^3/ul Absolute Basos (auto) 0.1 (0-0.2) 10^3/ul Absolute Nucleated RBC 0.0 10^3/ul Nucleated RBC % 0.0 ESR Pending INR (Anticoag Therapy) 1.15 H (0.82-1.09) Result Diagrams: 06/19/19 23:04 06/19/19 23:04 Lab Statement: Any lab studies that have been ordered have been reviewed, and results considered in the medical decision making process. Re-Evaluation - Re-Evaluation First Eval Re-Evaluation Time: 00:20 Change: Improved Comment: I have discussed results with the patient and sx have resolved. Discussed symptoms that warrant immediate return to ED. Complex Multi-Symp Course/Dx Course Of Treatment: 29-year-old female with a multitude of symptoms spanning over a period of weeks to months. Including joint aches muscle aches. Headaches blurry vision. Patient states she has been attributing most of her symptoms to her acne medication. Also has been seeing a rehabilitation manager for elevated white blood cells. Tonight she states the pain was worse and not improved with Tylenol. Patient received Toradol here with significant improvement of her pain. Workup demonstrated no significant acute findings. Although nondiagnostic. Patient discharged home. Follow up with PCP. Follow- up sooner for any worsening symptoms. - Diagnoses Provider Diagnoses: Myalgia Discharge ED - Sign-Out/Discharge Documenting (check all that apply): Patient Departure - Discharge - Discharge Plan Condition: Stable Disposition: HOME Referrals: Janice Denise NP [Primary Care Provider] - 3 Days Additional Instructions: Follow up with hematology and your primary care provider in 3 days. Take Tylenol and ibuprofen as needed. Return to the Emergency Department with new or worsening symptoms. - Billing Disposition and Condition Condition: STABLE Disposition: Home - Attestation Statements Document Initiated by Scribe: Yes Documenting Scribe: Annette Quinn Provider For Whom Dilcia is Documenting (Include Credential): Lata Ahumada MD Scribe Attestation: IEdward Tiffany Liu, scribed for Lata Ahumada MD on 06/20/19 at 0423. Scribe Documentation Reviewed: Yes Provider Attestation: The documentation as recorded by the scribe, Annette Quinn accurately reflects the service I personally performed and the decisions made by me, Lata Ahumada MD Status of Scribe Document: Viewed
[2019-06-19 23:40] LABS: HCG Pregnancy < 0.60 mIU/mL
[2019-06-20 00:10] LABS: Urine Appearance Clear; Urine Bacteria Absent (Absent); Urine Bilirubin Negative (Negative); Urine Blood 2+ (Negative); Urine Color Yellow; Urine Glucose Negative (Negative); Urine Ketones Negative (Negative); Urine Nitrite Negative (Negative); Urine Protein Negative (Negative); Urine Red Blood Cell Absent (Absent); Urine Specific Gravity 1.006 (1.010-1.030); Urine Squamous Epithelial Cell Present (Absent); Urine Urobilinogen Negative (Negative); Urine White Blood Cell Absent (Absent)
[2019-06-20 00:23] LABS: Erythrocyte Sed Rate 18 mm/Hr (0-19)
[2019-06-20 01:06] VITALS: BP 130/92
== END 2019-06-20 01:05 | disposition home or self-care (01) ==
LOC: ED 22:13
DX: M79.10 Myalgia, unspecified site (principal); Z88.1 Allergy status to other antibiotic agents; Z88.0 Allergy status to penicillin
CPT/HCPCS: 36415; 80053; 81003; 81015; 83605; 84702; 85025; 85610; 85652; 86140; 96372; 99282; A9270-GY; J1885

== ENCOUNTER → 2019-06-20 | Emergency (ER) | payer BC ==
[~2019-06-20] MED LIST: Ondansetron ODT TAB* 4 MG SL PRN
--- NOTE | 2019-06-20 21:26 | UC ---
FLU HPI - HPI Summary HPI Summary: Patient is a 29yo female presenting with for generalized body aches, lower back pain, tingling in her L thumb, nausea, and vomiting. Patient states she was seen in the ED last night for similar symptoms, which have mostly resolved, including blurry vision in the L eye. She also notes a soft spot on her head. 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 States the nausea and vomiting is new. One episode of emesis before she arrived. PAtient states she did not throw up much because she has not been eating d/t decreased appetite. Also notes feeling of urgency to defecate today without anything coming out. Patient has IBS but states this feels different. She says ibuprofen helps aches but she has not taken any since this morning. Patient adds that she was taking Claravis, accutane, for acne and is concerned that her symptoms may be related to side effects of the medication. However, she has not taken the medication in over two weeks because of issues with her insurance. - History of Current Complaint Chief Complaint: UCGI Stated Complaint: FLU SYMPTOMS Hx Obtained From: Patient Hx Last Menstrual Period: one week ago Pain Intensity: 7 - Allergy/Home Medications Allergies/Adverse Reactions: Allergies Allergy/AdvReac Type Severity Reaction Status Date / Time amoxicillin Allergy Anaphylatic Verified 06/20/19 20:07 Shock azithromycin Allergy Anaphylatic Verified 06/20/19 20:07 Shock erythromycin base Allergy Vomiting Verified 06/20/19 20:07 Penicillins Allergy Anaphylatic Verified 06/20/19 20:07 Shock shellfish derived Allergy Anaphylatic Verified 06/20/19 20:07 Shock PMH/Surg Hx/FS Hx/Imm Hx GI/ History: Other - IBS - Surgical History Surgical History: Yes Surgery Procedure, Year, and Place: WISDOM TEETH - Family History Known Family History: Positive: Other - R&NC Family History: no reported cardiovascular issues in family lineage - Social History Alcohol Use: None Substance Use Type: None Smoking Status (MU): Never Smoked Tobacco Have You Smoked in the Last Year: No - Immunization History Most Recent Influenza Vaccination: unsure Most Recent Tetanus Shot: 11/14/13 Most Recent Pneumonia Vaccination: unsure Review of Systems All Other Systems Reviewed And Are Negative: Yes Constitutional: Positive: Negative ENT: Positive: Negative Respiratory: Positive: Negative Cardiovascular: Positive: Negative Gastrointestinal: Positive: Vomiting, Nausea, Other - urgency to defecate. Negative: Abdominal Pain, Diarrhea Musculoskeletal: Positive: Myalgia Neurological: Positive: Paresthesia. Negative: Headache, Weakness Physical Exam Triage Information Reviewed: Yes Appearance: Well-Appearing, No Pain Distress, Well-Nourished Vital Signs: Initial Vital Signs Temp 7.9 F 06/20/19 20:01 Pulse 79 06/20/19 20:01 Resp 18 06/20/19 20:01 BP 158/104 06/20/19 20:01 Pulse Ox 99 06/20/19 20:01 Vital Signs Reviewed: Yes Eyes: Positive: Conjunctiva Clear, Other: - PERRLA. EOM intact ENT: Positive: Normal ENT inspection Neck exam: Normal Neck: Positive: Supple, Nontender, No Lymphadenopathy Respiratory Exam: Normal Respiratory: Positive: Lungs clear, Normal breath sounds, No respiratory distress Cardiovascular Exam: Normal Cardiovascular: Positive: RRR, Pulses Normal Abdominal Exam: Normal Abdomen Description: Positive: Nontender, Soft Bowel Sounds: Positive: Present Musculoskeletal Exam: Normal Musculoskeletal: Positive: Other: - point tenderness of R lower back Neurological Exam: Other - cranial nerves II-XII intact Neurological: Positive: Alert, Muscle Tone Normal Psychological: Positive: Age Appropriate Behavior Skin Exam: Other - soft spot on head Flu Course/Dx - Course Course Of Treatment: Patient with complex history and vague s/s. PE findings normal. I gave zofran for nausea and instructed her eat, increase fluid intake, rest, and to attend her appointment in the morning with her PCP. I informed her of her elevated blood pressure today. Recheck still elevated. Instructed her to mention to her PCP as well. Instructed her to go to ED if anything worsens between time of visit and her appt in AM. Patient voiced understanding and agreed with the treatment plan. - Differential Dx/Diagnosis Provider Diagnosis: Nausea and vomiting Discharge ED - Sign-Out/Discharge Documenting (check all that apply): Patient Departure All imaging exams completed and their final reports reviewed: No Studies - Discharge Plan Condition: Stable Disposition: HOME Referrals: Janice Denise NP [Primary Care Provider] - As Soon As Possible Additional Instructions: As discussed, it is unclear what is causing your symptoms tonight. You received a single dose of Zofran for nausea tonight. Make sure you eat, increase your fluid intake, and get plenty of rest. It is important that you follow up with your PCP tomorrow for further evaluation of your symptoms. Be sure to mention your elevated blood pressure readings as well. Go to the ED if you experience any worsening symptoms between now and your appointment in the morning. - Billing Disposition and Condition Condition: STABLE Disposition: Home
[2019-06-20 22:16] VITALS: BP 158/112
== END | disposition home or self-care (01) ==
LOC: UCEAST 19:53
DX: R11.2 Nausea with vomiting, unspecified (principal); M79.10 Myalgia, unspecified site; K58.9 Irritable bowel syndrome, unspecified; R03.0 Elevated blood-pressure reading, without diagnosis of hypertension; M54.5 Low back pain; Z88.0 Allergy status to penicillin; Z88.1 Allergy status to other antibiotic agents; Z91.013 Allergy to seafood
CPT/HCPCS: A9270-GY